=== PATIENT | male | born 1970 ===

== ENCOUNTER 2017-10-22 11:56 | Emergency (ER) | payer SELFPAY ==
[~2017-10-22] VITALS: Ht 170.2 cm; Wt 70.0 kg
[2017-10-22 12:00] VITALS: BP 121/71
== END 2017-10-22 12:12 | disposition left against medical advice (07) ==
LOC: ER 11:57
DX: F10.920 Alcohol use, unspecified with intoxication, uncomplicated (principal); F17.200 Nicotine dependence, unspecified, uncomplicated; Y90.9 Presence of alcohol in blood, level not specified
CPT/HCPCS: 99283